=== PATIENT | female | born 1945 | race Caucasian/White ===

== ENCOUNTER 2017-02-08 16:15 | Emergency (ER) | payer MEDICARE, OTHER ==
--- NOTE | 2017-02-08 16:55 | EDM.PDOC ---
ED HPI GENERAL MEDICAL PROBLEM - General Chief Complaint: Upper Extremity Injury/Pain Stated Complaint: FINGER PAIN Time Seen by Provider: 02/08/17 16:45 - History of Present Illness INITIAL COMMENTS - FREE TEXT/NARRATIVE: 71-year-old female presents emergency room after getting something stuck in her left middle finger. Patient was working in the garden and wonders if maybe she got a piece of grass stuck in her finger. This occurred shortly before arrival patient was working in in the grass wearing gloves felt some sharp in her finger took the glove off did not see anything but had a puncture wound she's developed puffiness along the ulnar aspect of her finger between the proximal and distal interphalangeal joints. Patient is unsure of her last tetanus shot. Right 3-Middle finger Pain Score (Numeric/FACES): 8 - Related Data Allergies Allergy/AdvReac Type Severity Reaction Status Date / Time Iodinated Contrast Media - Allergy Severe Swelling Verified 02/08/17 16:50 Oral and [Iodinated Contrast Media - IV Dye] Penicillins Allergy Severe Rash Verified 02/08/17 16:50 codeine Allergy Unknown Cannot Verified 02/08/17 16:50 Remember hydrocodone AdvReac Severe Vomiting Verified 02/08/17 16:50 Home Meds: Home Meds Aspirin [Halfprin] 81 mg PO DAILY 04/19/14 [History] Hydrochlorothiazide 25 mg PO DAILY 04/19/14 [History] Levothyroxine 75 mcg PO DAILY 04/19/14 [History] Methylsulfonylmethane [MSM] 1,000 mg PO DAILY 10/04/14 [History] Hyoscyamine Sulfate [Levsin-Sl] 0.125 mg SL Q6H PRN #10 tab.subl 08/23/16 [Rx] Doxycycline Hyclate 100 mg PO Q12H #13 capsule 02/08/17 [Rx] Past Medical History Cardiovascular History: Reports: Hypertension Gastrointestinal History: Reports: GERD Endocrine/Metabolic History: Reports: Hypothyroidism - Past Surgical History HEENT Surgical History: Reports: Tonsillectomy GI Surgical History: Reports: Appendectomy, Colonoscopy Female Surgical History: Reports: section, Hysterectomy Musculoskeletal Surgical History: Reports: Shoulder surgery, Other (see below) Other Musculoskeletal Surgeries/Procedures:: Foot surgery Social & Family History - Tobacco Use Smoking Status *Q: Never Smoker Second Hand Smoke Exposure: No - Caffeine Use Caffeine Use: Reports: Coffee, Soda, Tea - Alcohol Use Days Per Week of Alcohol Use: 0 - Recreational Drug Use Recreational Drug Use: No ED ROS GENERAL - Review of Systems Review Of Systems: See Below Constitutional: Reports: no symptoms Respiratory: Reports: No Symptoms Cardiovascular: Reports: No symptoms GI/Abdominal: Reports: No symptoms ED EXAM, GENERAL - Physical Exam Exam: See Below Exam Limited By: No limitations General Appearance: alert, no apparent distress Respiratory/Chest: no respiratory distress, lungs clear, normal breath sounds Cardiovascular: regular rate, rhythm, no edema, no murmur Extremities: other (Damage to her left middle finger shows restriction in range of motion secondary to pain at this puncture site into the ulnar aspect of this. She may have some numbness distal to the puncture site. No obvious deformity other than a little bit of swelling that is very tender on the ulnar palmar aspect of her finger.) ED GENERAL MEDICAL PROCEDURES - Additional/Other Procedure(s) Other (Free Text) Procedure(s): x-ray examination of of right middle finger revealed no foreign body however soft tissue swelling was noted in the palmar aspect. Patient's finger was anesthetized using 2 cc 1% lidocaine without epinephrine satisfactory anesthesia was confirmed. Using a 22-gauge needle this site and double the puncture wound was opened up a small piece of grass or splinter was removed this was roughly 1 1/2 mm. It still felt like a foreign body was in place the laceration was extended ended another millimeter and a 1.2 cm piece of grass or splinter was removed. This was barely visualized before attempting removal. I cannot be certain the all the foreign body was removed I explained this to the patient and her daughter no uncertain terms often times this does not cause any problems they will either encapsulate or eventually be expelled through the skin. At times they can cause a tissue abscess. This needs to be watched for they understand the patient will do local wound care consisting of a loose Band- Aid and Epsom salts soaks 5-6 times a day and will be started on doxycycline. Course - Vital Signs Last Recorded V/S: Last Vital Signs Temp 36.5 C 02/08/17 16:45 Pulse 72 02/08/17 16:45 Resp 16 02/08/17 16:45 BP 159/72 H 02/08/17 16:45 Pulse Ox 99 02/08/17 16:45 - Orders/Labs/Meds Orders: Active Orders 24 hr Category Date Time Status Vaccines to be Administered [RC] PER UNIT ROUTINE Care 02/08/17 16:56 Active Fingers Third Digit Rt F7 [CR] Stat Exams 02/08/17 16:55 Taken Meds: Medications Discontinued Medications Generic Name Dose Route Start Last Admin Trade Name Chelita PRN Reason Stop Dose Admin Diphtheria/Tetanus/Acell Pertussis 0.5 ml 02/08/17 16:56 02/08/17 18:05 Boostrix IM 02/08/17 16:57 0.5 ml .ONCE ONE Administration Doxycycline Hyclate 100 mg 02/08/17 19:21 02/08/17 19:25 Vibramycin PO 02/08/17 19:22 100 mg ONETIME ONE Administration Doxycycline Hyclate Confirm 02/08/17 19:24 Vibramycin Administered 02/08/17 19:25 Dose 100 mg .ROUTE .STK-MED ONE Lidocaine HCl 50 ml 02/08/17 18:49 02/08/17 18:54 Xylocaine 1% INJECT 02/08/17 18:50 50 ml ONETIME ONE Administration Lidocaine HCl 50 ml 02/08/17 18:49 02/08/17 18:56 Xylocaine 1% INJECT 02/08/17 18:50 Not Given ONETIME ONE Departure - Departure Time of Disposition: 19:21 Disposition: Home, Self-Care 01 Clinical Impression: Foreign body in subcutaneous tissue Prescriptions: Doxycycline Hyclate 100 mg PO Q12H #13 capsule Instructions: Sliver Removal, Care After Referrals: Akila Clancy DO [Primary Care Provider] - Forms: ED Department Discharge Additional Instructions: Return to the emergency room if any questions or problems. You have been started on doxycycline 100 mg. Take one twice daily until all gone. Followup in the clinic with your physician on Thursday for recheck. Warm Epsom salts solution soaks 5-6 times daily. - My Orders Last 24 Hours: My Active Orders 02/08/17 16:55 Fingers Third Digit Rt F7 [CR] Stat 02/08/17 16:56 Vaccines to be Administered [RC] PER UNIT ROUTINE - Assessment/Plan Last 24 Hours: My Active Orders 02/08/17 16:55 Fingers Third Digit Rt F7 [CR] Stat 02/08/17 16:56 Vaccines to be Administered [RC] PER UNIT ROUTINE
[2017-02-08] MEDS ORDERED: Diphtheria,Pertussis(Acell),Tetanus Vaccine 0.5 ML SDV inactive IM ONE (16:56)
[2017-02-08] MEDS ORDERED: Lidocaine 1% 20 ML MDV INJECT ONE (18:49)
[2017-02-08] MEDS ORDERED: Lidocaine 1% 50 ML MDV INJECT ONE (18:49)
[2017-02-08] MEDS ORDERED: Doxycycline 100 MG Cap PO ONE (19:21)
[2017-02-08] MEDS ORDERED: Doxycycline 100 MG Cap ONE (19:24)
[2017-02-08 21:08] VITALS: BP 134/74
--- NOTE | 2017-02-09 08:33 | CR ---
Right third finger: Four views of the right third finger were obtained. Comparison: No previous study. Small calcifications are seen around the DIP joint presumably from old injury. Minimal degenerative change noted within the DIP joint. No acute fracture or other bony abnormality is seen. No opaque foreign objects are seen. Impression: 1. Findings as noted above. No acute foreign body identified. 2. No acute bony abnormality. Diagnostic code #2
== END 2017-02-08 19:30 | disposition home or self-care (01) ==
LOC: JD.ED 16:15
DX: S61.243A Puncture wound with foreign body of left middle finger without damage to nail, initial encounter (principal); I10 Essential (primary) hypertension; K21.9 Gastro-esophageal reflux disease without esophagitis; E03.9 Hypothyroidism, unspecified; Z98.890 Other specified postprocedural states; Z23 Encounter for immunization; Z90.49 Acquired absence of other specified parts of digestive tract; Z90.710 Acquired absence of both cervix and uterus; Z79.82 Long term (current) use of aspirin; Z79.899 Other long term (current) drug therapy; Z88.0 Allergy status to penicillin; Z88.5 Allergy status to narcotic agent; Z91.041 Radiographic dye allergy status; W25.XXXA Contact with sharp glass, initial encounter
CPT/HCPCS: 10120; 73140; 90471; 99283; A9270; 90715

== ENCOUNTER 2018-11-26 05:40 | Emergency (ER) | payer MEDICARE, OTHER ==
[2018-11-26 05:57] VITALS: BP 131/95
[2018-11-26] MEDS ORDERED: Promethazine 25 MG/ML SDV IM ONE (06:23)
[2018-11-26] MEDS ORDERED: HYDROmorphone 1 MG/ML Syringe IM ONE (06:23)
[2018-11-26] MEDS ORDERED: predniSONE 20 MG Tab PO ONE (06:24)
--- NOTE | 2018-11-26 06:30 | EDM.PDOC ---
ED HPI GENERAL MEDICAL PROBLEM - General Chief Complaint: Lower Extremity Injury/Pain Stated Complaint: LEFT HIP PAIN Time Seen by Provider: 11/26/18 06:24 Source of Information: Reports: Patient, Family (daughter) History Limitations: Reports: No Limitations - History of Present Illness INITIAL COMMENTS - FREE TEXT/NARRATIVE: 73-year-old female presents to the ED with acute onset of mild low back pain but marked left buttock pain and left hip pain radiating down the posterior lateral aspect of her left leg all the way to her foot. Was fine when she went to bed last night and awoke with severe pain this morning. She can't member twisting or near slipping or falling in the last 2 days. Does have generalized arthritis but never been this severe in the past. She has no history of shingles. He has had the Zostavax shot in the past. Onset: Today Onset Date: 11/26/18 Onset Time: 03:00 (Has been up since 3:00 this morning due to severe pain in her lower back and buttock area.) Duration: Hour(s): Location: Reports: Back (Left lower back radiating into the left hip and down the posterior lateral aspect of her left thigh all the way down to her foot.), Lower Extremity, Left Quality: Reports: Ache, Burning, Stabbing, Throbbing Severity: Moderate (8 out of 10) Improves with: Reports: Rest Worsens with: Reports: Other, Movement Context: Reports: Other. Denies: Activity, Exercise (Standing and walking make it much worse.), Lifting, Sick Contact, Trauma Associated Symptoms: Reports: Loss of Appetite, Malaise. Denies: Confusion, Chest Pain, Cough, cough w sputum, Diaphoresis, Fever/Chills, Nausea/Vomiting, Rash, Shortness of Breath, Syncope Treatments DESIGN PAINTER: Reports: Acetaminophen (With no relief) Left Hip Pain Score (Numeric/FACES): 8 - Related Data Allergies Allergy/AdvReac Type Severity Reaction Status Date / Time Iodinated Contrast- Oral and Allergy Severe Swelling Verified 11/26/18 05:53 IV Dye [Iodinated Contrast Media - IV Dye] Penicillins Allergy Severe Rash Verified 11/26/18 05:53 codeine Allergy Unknown Cannot Verified 11/26/18 05:53 Remember hydrocodone AdvReac Severe Vomiting Verified 11/26/18 05:53 Home Meds: Home Meds Levothyroxine 75 mcg PO DAILY 04/19/14 [History] hydroCHLOROthiazide [Hydrochlorothiazide] 25 mg PO DAILY 04/19/14 [History] Methylsulfonylmethane [MSM] 1,000 mg PO DAILY 10/04/14 [History] Meloxicam 15 mg PO DAILY #12 tablet 11/26/18 [Rx] metFORMIN [Glucophage] 500 mg PO DAILY 11/26/18 [History] oxyCODONE HCl/Acetaminophen [Percocet 5-325 mg Tablet] 1 - 2 each PO Q4H PRN # 15 tablet 11/26/18 [Rx] predniSONE [Deltasone] 20 mg PO ASDIRECTED #18 tablet 11/26/18 [Rx] Past Medical History HEENT History: Reports: Cataract, Impaired Vision Other HEENT History: Wears glasses Cardiovascular History: Reports: High Cholesterol, Hypertension Gastrointestinal History: Reports: GERD 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: Musculoskeletal History: Reports: Osteoarthritis Neurological History: Reports: Concussion Endocrine/Metabolic History: Reports: Diabetes, Type II (Controlled with metformin.), Hypothyroidism Oncologic (Cancer) History: Reports: Basal Cell Carcinoma - Past Surgical History HEENT Surgical History: Reports: Cataract Surgery, Tonsillectomy GI Surgical History: Reports: Appendectomy, Colonoscopy Female Surgical History: Reports: Section, Hysterectomy, Salpingo- Oophorectomy Musculoskeletal Surgical History: Reports: Shoulder Surgery, Other (See Below) Other Musculoskeletal Surgeries/Procedures:: growth removed fromtoe Social & Family History - Family History Oncologic: Reports: Esophageal - Tobacco Use Smoking Status *Q: Never Smoker - Caffeine Use Caffeine Use: Reports: Coffee, Soda, Tea - Living Situation & Occupation Living situation: Reports: Occupation: Retired Review of Systems - Review of Systems Review Of Systems: See Below Constitutional: Denies: Chills, Diaphoresis, Fever, Weakness, Other Eyes: Reports: Glasses Ears: Reports: No Symptoms Nose: Reports: No Symptoms Mouth/Throat: Reports: No Symptoms Respiratory: Reports: No Symptoms Cardiovascular: Reports: No Symptoms, Other (Does have hypertension.) GI/Abdominal: Reports: No Symptoms Genitourinary: Reports: Other (Urinary frequency) Musculoskeletal: Reports: Neck Pain, Shoulder Pain, Back Pain Skin: Reports: No Symptoms Neurological: Reports: No Symptoms Psychiatric: Reports: No Symptoms ED EXAM, GENERAL - Physical Exam Exam: See Below Exam Limited By: No Limitations General Appearance: Alert, WD/WN, Moderate Distress, Other (Very slow to get up from the examination table.) Respiratory/Chest: No Respiratory Distress, Lungs Clear, Normal Breath Sounds Cardiovascular: Regular Rate, Rhythm, No Edema, No Gallop, No Murmur, No Rub. No: Normal Peripheral Pulses Peripheral Pulses: 2+: Posterior Tibial (L), Posterior Tibial (R), Dorsalis Pedis (L), Dorsalis Pedis (R) GI/Abdominal: Normal Bowel Sounds, Soft, Non-Tender, No Organomegaly, Pelvis Stable Back Exam: Vertebral Tenderness (Patient has moderate pain on palpation of L3- L5 facet joints on the left side and L4-5 facet joints on the right side of her back with very minimal overlying paraspinal muscle spasm. Of note there is no rash in the left side of her lower back but talk or leg.), Other (Patient has severe tenderness on palpation of both sacroiliac joints the left watch worse on the right. Greater trochanteric versus are normal bilaterally.) Extremities: Normal Inspection, Other (She has decreased external and internal rotation of both hips from most arthritic changes clinically.). No: Normal Range of Motion Neurological: Alert, Oriented, CN II-XII Intact, Normal Cognition, Other ( Aching small steps with obvious pain with full weight on the left lower extremity.). No: Normal Gait Psychiatric: Normal Affect, Other Skin Exam: Warm (In a good deal of pain), Dry, Intact, Normal Color, No Rash, Other (No evidence of zoster like rash on the left lower hip but have asked the patient to watch for this.) Course - Vital Signs Last Recorded V/S: Last Vital Signs Temp 36.9 C 11/26/18 05:55 Pulse 105 H 11/26/18 05:55 Resp 18 11/26/18 05:55 BP 131/95 H 11/26/18 05:55 Pulse Ox 100 11/26/18 05:55 - Orders/Labs/Meds Meds: Medications Discontinued Medications Generic Name Dose Route Start Last Admin Trade Name Freq PRN Reason Stop Dose Admin Hydromorphone HCl 1 mg 11/26/18 06:23 11/26/18 06:39 Dilaudid IM 11/26/18 06:24 1 mg ONETIME ONE Administration Prednisone 20 mg 11/26/18 06:24 11/26/18 06:39 Prednisone PO 11/26/18 06:25 20 mg ONETIME ONE Administration Promethazine HCl 12.5 mg 11/26/18 06:23 11/26/18 06:39 Phenergan IM 11/26/18 06:24 12.5 mg ONETIME ONE Administration - Radiology Interpretation Free Text/Narrative:: 73-year-old female who states she went to bed feeling fine but awoke around 0300 hrs. this morning with severe pain left lower back rating into her left buttock and all the way down her left leg posterior laterally to her foot. She states any movement of her hip causes extensive pain posteriorly. Examination reveals facet joint tenderness L3-L5 on the left side L2 4 and 5 on the right side exquisite pain on palpation of both sacroiliac joints particularly the left greater than the right. Greater trochanteric bursa as were normal. She does have decreased range of motion of both hips due to underlying arthritis but external rotation of the left hip caused her quite a bit of pain. I have some concern that she may be going to develop the shingles in this area. The vascular watch in the mirror on a daily basis and intend the physician if she develops any rashes in the next 4-5 days. Is instructed all since 3:00 this morning. Inability deal of pain at present. Given 1 mg of Dilaudid IM with 12.5 mg of Phenergan IM for acute pain relief. First dose of prednisone 20 mg by mouth to reduce inflammation. Discharge meds will be meloxicam 15 mg once daily every morning for the next 12 days. Deltasone 20 mg a.m. and p.m. for 6 days then once in the morning only for another 6 days to help further reduce inflammation. Percocet tabs 15/325 mg tablet every 4-6 hours needed for pain relief. She's become quite nauseated from hydrocodone in the past but she had Percocet with a shoulder surgery and did fine with that. She is to follow-up with her personal care physician in a week's time. Sooner if she develops any rashes that would suggest shingles. Departure - Departure Time of Disposition: 06:25 Disposition: Home, Self-Care 01 Condition: Fair Clinical Impression: Bilateral sacroiliitis, Low back pain radiating down leg - Discharge Information *PRESCRIPTION DRUG MONITORING PROGRAM REVIEWED*: Not Applicable *COPY OF PRESCRIPTION DRUG MONITORING REPORT IN PATIENT FAYE: Not Applicable Prescriptions: Meloxicam 15 mg PO DAILY #12 tablet oxyCODONE HCl/Acetaminophen [Percocet 5-325 mg Tablet] 1 - 2 each PO Q4H PRN # 15 tablet PRN Reason: pain relief. predniSONE [Deltasone] 20 mg PO ASDIRECTED #18 tablet Instructions: Sacroiliac Joint Dysfunction, Musculoskeletal Pain, Back Pain, Adult, [id number], Pain Medicine Instructions, [id number] Referrals: Hamida Rodriguez NP [Primary Care Provider] - Forms: ED Department Discharge Additional Instructions: Evaluation in the emergency room this morning in regards to development of acute left-sided low back pain radiating into the left buttock and hip area and down the left leg all the way to your foot. Examination reveals facet joint tenderness at lumbar 3-L4, L4-5, and L5, S1 levels left lower back. Also mildly tender in the lower to facet joints on the right side of your back. Severe tenderness appreciated both sacroiliac joints left worse than the right. This is the major source of your pain rating down the back of her leg and hip area. Is in for the joint inflammation is unclear. It's like a flareup of arthritis. Treatment is reduction of the inflammation. Pain control in the ED was given with an intramuscular injection of Dilaudid 1 mg and Phenergan 12.5 mg IM for acute pain relief. This will produce some degree of sedation and you should go home to bed for the next 4-6 hours. Also first dose of steroid was administered in the ED this morning 20 mg of Deltasone. 2 minute home will be Deltasone 20 mg twice daily for the next 6 days. This is to be taken with breakfast and supper and after 6 days taken once daily in the morning for 6 more days. This is designed to reduce the inflammation and thus the pain in both sacroiliac joints [id number] back. Similarly meloxicam as an anti-inflammatory taken once daily every morning for the next 12 days to reduce pain and inflammation. I did send you home with a prescription for pain medication Percocet 5/325 mg one tablet every 4-6 hours as needed for pain relief. Please take this with food to minimize upsetting her stomach causing nausea. Again this is taken at your discretion when the pain is quite bad. It will usually take the anti- inflammatories and the steroid a day and a half or 2 to work and reduce pain and inflammation and source areas. Suggest follow-up with your personal care physician in 7 days time
== END 2018-11-26 07:12 | disposition home or self-care (01) ==
LOC: JD.ED 05:40
DX: M46.1 Sacroiliitis, not elsewhere classified (principal); E78.00 Pure hypercholesterolemia, unspecified; I10 Essential (primary) hypertension; K21.9 Gastro-esophageal reflux disease without esophagitis; E11.9 Type 2 diabetes mellitus without complications; Z91.030 Bee allergy status; Z88.5 Allergy status to narcotic agent; Z88.0 Allergy status to penicillin; Z79.899 Other long term (current) drug therapy
CPT/HCPCS: 96372; 99283; A9270; J1170; J2550

== ENCOUNTER 2021-01-13 17:10 | Emergency (ER) | payer MEDICARE, OTHER ==
[2021-01-13 17:26] VITALS: BP 160/86; PULSE 82
--- NOTE | 2021-01-13 17:26 | EDM.PDOC ---
ED HPI GENERAL MEDICAL PROBLEM - General Chief Complaint: Lower Extremity Injury/Pain Stated Complaint: L LEG PAIN Time Seen by Provider: 01/13/21 17:26 - History of Present Illness INITIAL COMMENTS - FREE TEXT/NARRATIVE: 75-year-old female presents the emergency room with left calf pain. This pain is been present for several weeks now and seems to be progressively getting worse as time goes by. The patient was walking around pretty good today but the more she walked on it the more tender and got. She has not noticed any calf redness swelling with this but the pain seems to be mostly in the posterior portion of the calf. Patient has not had any breathing difficulties or shortness of breath no chest pain or chest pressure. She has been using Aleve for the pain with some success. Patient is treated for hypertension. Left Lower Posterior Leg Pain Score (Numeric/FACES): 8 - Related Data Allergies Allergy/AdvReac Type Severity Reaction Status Date / Time Iodinated Contrast Media Allergy Severe Swelling Verified 01/13/21 17:24 [Iodinated Contrast Media - IV Dye] Penicillins Allergy Severe Rash Verified 01/13/21 17:24 codeine Allergy Unknown Cannot Verified 01/13/21 17:24 Remember hydrocodone AdvReac Severe Vomiting Verified 01/13/21 17:24 Home Meds: Home Meds Levothyroxine 75 mcg PO DAILY 04/19/14 [History] hydroCHLOROthiazide [Hydrochlorothiazide] 25 mg PO DAILY 04/19/14 [History] Methylsulfonylmethane [MSM] 1,000 mg PO DAILY 10/04/14 [History] Potassium Chloride [Klor-Con] 20 meq PO DAILY 01/13/21 [History] Rosuvastatin Calcium 10 mg PO DAILY 01/13/21 [History] Past Medical History HEENT History: Reports: Cataract, Impaired Vision Other HEENT History: Wears glasses Cardiovascular History: Reports: High Cholesterol, Hypertension Gastrointestinal History: Reports: GERD 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: Musculoskeletal History: Reports: Osteoarthritis Neurological History: Reports: Concussion Endocrine/Metabolic History: Reports: Diabetes, Type II (Controlled with metformin.), Hypothyroidism Oncologic (Cancer) History: Reports: Basal Cell Carcinoma - Past Surgical History HEENT Surgical History: Reports: Cataract Surgery, Tonsillectomy GI Surgical History: Reports: Appendectomy, Colonoscopy Female Surgical History: Reports: Section, Hysterectomy, Salpingo- Oophorectomy Musculoskeletal Surgical History: Reports: Shoulder Surgery, Other (See Below) Other Musculoskeletal Surgeries/Procedures:: growth removed fromtoe Social & Family History - Family History Oncologic: Reports: Esophageal - Caffeine Use Caffeine Use: Reports: Coffee, Soda, Tea - Living Situation & Occupation Living situation: Reports: Occupation: Retired Review of Systems - Review of Systems Review Of Systems: See Below Constitutional: Reports: No Symptoms Respiratory: Reports: No Symptoms Cardiovascular: Reports: No Symptoms GI/Abdominal: Reports: No Symptoms Musculoskeletal: Reports: Leg Pain Neurological: Reports: No Symptoms Psychiatric: Reports: No Symptoms ED EXAM, GENERAL - Physical Exam Exam: See Below Exam Limited By: No Limitations General Appearance: Alert, No Apparent Distress Head: Atraumatic, Normocephalic Neck: Normal Inspection, Supple, Non-Tender. No: Lymphadenopathy (L), Lymphadenopathy (R) Respiratory/Chest: No Respiratory Distress, Lungs Clear, Normal Breath Sounds Cardiovascular: Regular Rate, Rhythm, No Edema, No Murmur GI/Abdominal: Normal Bowel Sounds, Soft, Non-Tender Back Exam: Normal Inspection. No: CVA Tenderness (L), CVA Tenderness (R), Paraspinal Tenderness, Vertebral Tenderness Extremities: Other (Semination of her left leg shows significant tenderness in certain areas of the posterior calf musculature. No significant anterior discomfort. Dorsiflexion of her foot causes discomfort slight flexion of the knee improves the discomfort inversion of her foot makes it a little worse eversion helps slightly. She is got no redness swelling or warmth associated with her leg exam with special attention paid to the course of the venous stru ctures.) Course - Vital Signs Last Recorded V/S: Last Vital Signs Temp 36.6 C 01/13/21 17:21 Pulse 82 01/13/21 17:21 Resp 16 01/13/21 17:21 BP 160/86 H 01/13/21 17:21 Pulse Ox 97 01/13/21 17:21 - Orders/Labs/Meds Orders: Active Orders 24 hr Category Date Time Status Tibia Fibula Lt [CR] Stat Exams 01/13/21 17:40 Ordered Labs: Laboratory Tests 01/13/21 Range/Units 17:55 D-Dimer, Quantitative 0.43 (0.19-0.50) mg/L - Re-Assessments/Exams Free Text/Narrative Re-Assessment/Exam: 01/13/21 18:41 X-ray examination of the lower leg is negative for acute fracture dislocation or bony lesions of concern. D-dimer is unremarkable it appears she has some sort of muscle strain however by history there is no triggering event identified. Departure - Departure Time of Disposition: 18:41 Disposition: Home, Self-Care 01 Clinical Impression: Strain of muscle of posterior left lower leg - Discharge Information Referrals: Hamida Rodriguez GRADUATE [employer] DEAN [Primary Care Provider] - Forms: ED Department Discharge Additional Instructions: Return to the emergency room with any questions problems or worsening symptoms. Follow-up in the clinic on Thursday for recheck if not improving consider rechecking a D-dimer. Use Tylenol for discomfort Aleve as well as ibuprofen can increase your blood pressure increase your risk of heart attack and stroke. You can take 2 extra strength Tylenol the 500 mg tablets 4 times daily this is maximum dose do not exceed this dose. Sepsis Event Note (ED) - Focused Exam Vital Signs: Vital Signs Temp Pulse Resp BP Pulse Ox 01/13/21 17:21 36.6 C 82 16 160/86 H 97 - My Orders Last 24 Hours: My Active Orders 01/13/21 17:40 Tibia Fibula Lt [CR] Stat - Assessment/Plan Last 24 Hours: My Active Orders 01/13/21 17:40 Tibia Fibula Lt [CR] Stat
--- NOTE | 2021-01-14 06:39 | CR ---
Left tibia and fibula: AP and lateral views of the left tibia and fibula were obtained. Comparison: No prior tibia or fibula exam. Tibia and fibula appear intact. No fracture is appreciated. Small soft tissue calcification is noted within the anterior moreira. This is believed to be incidental. No additional abnormality is appreciated. Impression: 1. Small soft tissue calcification. 2. No acute osseous abnormality is appreciated on left tibia and fibula study. Diagnostic code #2
== END 2021-01-13 19:08 | disposition home or self-care (01) ==
LOC: JD.ED 17:10
DX: S86.112A Strain of other muscle(s) and tendon(s) of posterior muscle group at lower leg level, left leg, initial encounter (principal); E78.00 Pure hypercholesterolemia, unspecified; I10 Essential (primary) hypertension; E11.9 Type 2 diabetes mellitus without complications; Z79.899 Other long term (current) drug therapy; Z91.041 Radiographic dye allergy status; Z88.5 Allergy status to narcotic agent; Z88.0 Allergy status to penicillin; X58.XXXA Exposure to other specified factors, initial encounter
CPT/HCPCS: 36415; 73590-26-LT; 73590-LT; 85379; 99282; 99283

== ENCOUNTER 2024-03-03 06:19 | Emergency (ER) | payer MEDICARE, OTHER ==
[2024-03-03 06:47] LABS: BASOPHILS ABSOLUTE AUTO 0.1 K/mm3 (0.0-0.2); BASOPHILS PERCENT AUTO 1.1 % (0.0-1.0); EOSINOPHILS ABSOLUTE AUTO 0.3 K/mm3 (0.0-0.4); EOSINOPHILS PERCENT AUTO 3.8 % (0.0-6.0); HEMATOCRIT 44.3 % (37.0-47.0); IMMATURE GRAN ABSOLUTE AUTO 0.01 K/mm3 (0.00-0.05); IMMATURE GRAN PERCENT AUTO 0.2 % (0.0-0.4); LYMPHOCYTES ABSOLUTE AUTO 2.4 K/mm3 (1.0-4.8); LYMPHOCYTES PERCENT AUTO 35.9 % (24.0-44.0); MEAN CORPUSCULAR HEMOGLOBIN 31.3 pg (28.0-32.0); MEAN CORPUSCULAR HGB CONC 33.9 g/dl (32.0-36.0); MEAN CORPUSCULAR VOLUME 92.3 fl (83.0-99.0); MEAN PLATELET VOLUME 9.2 fl (9.4-12.3); MONOCYTES ABSOLUTE AUTO 0.7 K/mm3 (0.0-0.8); MONOCYTES PERCENT AUTO 10.7 % (0.0-8.0); NEUTROPHILS ABSOLUTE AUTO 3.2 K/mm3 (1.8-7.7); NEUTROPHILS PERCENT AUTO 48.3 % (41.0-71.0); PLATELET COUNT,PLT 308 K/mm3 (150-400); WHITE BLOOD CELL COUNT,WBC 6.65 K/mm3 (3.9-11.3)
[2024-03-03 06:59] LABS: ALBUMIN 3.6 g/dl (3.4-5.0); ANION GAP 14.6 (5-15); BILIRUBIN TOTAL 0.7 mg/dL (0.2-1.0); BUN/CREATININE RATIO 15.6 (14-18); CALCIUM 8.7 mg/dL (8.5-10.1); CREATININE 0.9 mg/dL (0.55-1.02); EST CRCL DRUG DOSING (CG) 41.4 mL/min; MAGNESIUM 2.1 mg/dL (1.8-2.4); POTASSIUM,K 3.6 mEq/L (3.5-5.1); PROTEIN TOTAL,TP 7.1 g/dl (6.4-8.2)
[2024-03-03 08:08] VITALS: BP 149/78; PULSE 56
== END 2024-03-03 08:08 | disposition home or self-care (01) ==
LOC: JD.ED 06:19
DX: M79.622 Pain in left upper arm (principal); R20.2 Paresthesia of skin; I10 Essential (primary) hypertension; E78.00 Pure hypercholesterolemia, unspecified; E11.9 Type 2 diabetes mellitus without complications; E03.9 Hypothyroidism, unspecified; Z91.041 Radiographic dye allergy status; Z88.0 Allergy status to penicillin; Z88.5 Allergy status to narcotic agent; Z90.710 Acquired absence of both cervix and uterus
CPT/HCPCS: 36415; 80053; 83690; 83735; 83880; 84484; 85025; 93005; 93010; 99283; 99284

== ENCOUNTER 2024-12-20 12:58 | Emergency (ER) | payer MEDICARE, OTHER ==
[2024-12-20 13:21] VITALS: PULSE 65
[2024-12-20 13:26] VITALS: BP 162/91
[2024-12-20 13:51] LABS: BASOPHILS PERCENT AUTO 0.3 % (0.0-1.0); EOSINOPHILS PERCENT AUTO 0.2 % (0.0-6.0); HEMATOCRIT 44.3 % (37.0-47.0); HEMOGLOBIN 14.4 gm/dl (12.0-16.0); IMMATURE GRAN ABSOLUTE AUTO 0.05 K/mm3 (0.00-0.05); IMMATURE GRAN PERCENT AUTO 0.5 % (0.0-0.4); LYMPHOCYTES ABSOLUTE AUTO 0.9 K/mm3 (1.0-4.8); LYMPHOCYTES PERCENT AUTO 8.4 % (24.0-44.0); MEAN CORPUSCULAR HEMOGLOBIN 30.3 pg (28.0-32.0); MEAN CORPUSCULAR HGB CONC 32.5 g/dl (32.0-36.0); MEAN CORPUSCULAR VOLUME 93.3 fl (83.0-99.0); MEAN PLATELET VOLUME 9.7 fl (9.4-12.3); MONOCYTES ABSOLUTE AUTO 0.4 K/mm3 (0.0-0.8); MONOCYTES PERCENT AUTO 3.7 % (0.0-8.0); NEUTROPHILS ABSOLUTE AUTO 9.4 K/mm3 (1.8-7.7); NEUTROPHILS PERCENT AUTO 86.9 % (41.0-71.0); PLATELET COUNT,PLT 277 K/mm3 (150-400); RED BLOOD CELL COUNT 4.75 M/mm3 (4.10-5.30); WHITE BLOOD CELL COUNT,WBC 10.75 K/mm3 (3.9-11.3)
[2024-12-20 14:26] LABS: A/G RATIO 1.1 (1-2); ALANINE AMINOTRANSFERASE,ALT 17 U/L (14-59); ALBUMIN 3.6 g/dl (3.4-5.0); ALKALINE PHOSPHATASE 76 U/L (46-116); ASPARTATE AMNIOTRANSFERASE,AST 14 U/L (15-37); BILIRUBIN TOTAL 0.6 mg/dL (0.2-1.0); BLOOD UREA NITROGEN,BUN 16 mg/dL (7-18); BUN/CREATININE RATIO 17.8 (14-18); CARBON DIOXIDE,CO2 26 mEq/L (21-32); CHLORIDE,CL 111 mEq/L (98-107); CREATININE 0.9 mg/dL (0.55-1.02); EST CRCL DRUG DOSING (CG) 42.61 mL/min; ESTIMATED GFR 65 mL/min (>60); GLUCOSE RANDOM 120 mg/dL (70-99); PROTEIN TOTAL,TP 6.8 g/dl (6.4-8.2); SODIUM,NA 148 mEq/L (136-145)
[2024-12-20 14:33] LABS: TROPONIN I HIGH SENSITIVITY < 4 pg/mL (<=51)
[2024-12-20 14:34] LABS: TSH 0.836 uIU/mL (0.358-3.74)
[2024-12-20 16:34] LABS: APPEARANCE,URINE SLT CLOUDY (Clear); BILIRUBIN,URINE NEGATIVE (Negative); COLOR,URINE YELLOW (Yellow); GLUCOSE,URINE NEGATIVE (Negative); KETONES,URINE 2+ (Negative); LEUKOCYTE ESTERASE,URINE 1+ (Negative); NITRITE,URINE POSITIVE (Negative); OCCULT BLOOD,URINE TRACE-INTACT (Negative); PROTEIN,URINE 1+ (Negative); UROBILINOGEN,URINE 0.2 (0.2-1.0)
[2024-12-20 16:45] LABS: BACTERIA,URINE MANY /hpf (FEW); SQUAMOUS EPITHELIAL CELLS,UR 0-5 /hpf (0-5); WBC,URINE 40-50 /hpf (0-5)
[2024-12-20 16:46] LABS: MUCUS,URINE MODERATE /hpf (FEW)
[2024-12-20] MEDS: Cefdinir 300 MG Cap PO ONE (17:26)
[2024-12-20] MEDS: Acetaminophen 325 MG Tab PO ONE (18:05)
[2024-12-20] MEDS: Ondansetron 4 MG Tab.DIS PO ONE (18:05)
== END 2024-12-20 18:32 | disposition home or self-care (01) ==
LOC: JD.ED 12:58
DX: R55 Syncope and collapse (principal); N30.01 Acute cystitis with hematuria; R94.02 Abnormal brain scan; I10 Essential (primary) hypertension; E78.00 Pure hypercholesterolemia, unspecified; E11.9 Type 2 diabetes mellitus without complications; E03.9 Hypothyroidism, unspecified; Z90.710 Acquired absence of both cervix and uterus; Z91.041 Radiographic dye allergy status; Z88.0 Allergy status to penicillin; Z88.5 Allergy status to narcotic agent; Z79.890 Hormone replacement therapy; Z79.899 Other long term (current) drug therapy
CPT/HCPCS: 36415; 70450; 80053; 81001; 84443; 84484; 85025; 87086; 87428; 93005; 93246; 99284; A9270; 87088; 87186